=== PATIENT | male | born 2005 | race Caucasian/White ===

== ENCOUNTER 2023-01-26 19:49 | Emergency (ER) | payer OTHER, BC ==
[2023-01-26 19:56] VITALS: BP 145/93; PULSE 90; RESP 18; TEMP 99.1
--- NOTE | 2023-01-26 20:29 | XR ---
EXAMINATION TYPE: XR shoulder complete RT DATE OF EXAM: 01/26/2023 CLINICAL HISTORY: pain TECHNIQUE: Three views of the right shoulder are obtained. COMPARISON: None FINDINGS: There is no acute fracture/dislocation evident in the humerus or glenoid. There is complet e rupture of the AC ligament as well as the coracoclavicular ligament with the distal clavicle undern eath the skin surface. Findings are felt to reflect type V AC joint separation. IMPRESSION: 1. Fracture seen. AC joint separation as discussed above.
[2023-01-26] MEDS ORDERED: ACETAMINOPHEN TAB 325 MG TAB PO STA (20:44)
[2023-01-26] MEDS ORDERED: KETOROLAC 15 MG/ML 1 ML VIAL IM STA (20:44)
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
[2023-01-26] MEDS ORDERED: ACET/COD 300 MG/30 MG STARTER PACK 6 TAB BTL PO STA (21:28)
== END 2023-01-26 22:10 | disposition home or self-care (01) ==
LOC: EC 19:49
DX: S43.121A Dislocation of right acromioclavicular joint, 100%-200% displacement, initial encounter (principal); Z86.59 Personal history of other mental and behavioral disorders; V86.56XA Driver of dirt bike or motor/cross bike injured in nontraffic accident, initial encounter; Y92.411 Interstate highway as the place of occurrence of the external cause
CPT/HCPCS: 73030; 99284; 96372; J1885

== ENCOUNTER 2023-02-09 06:52 | Day surgery (SDC) | payer OTHER ==
[2023-02-06 16:36] VITALS: BMI 31.5
[2023-02-09] MEDS ORDERED: ONDANSETRON 4 MG/2 ML VIAL IVP ONE (07:11)
[2023-02-09] MEDS ORDERED: DEXAMETHASONE SOD PHOSPHATE 4 MG/ML 1 ML VIAL IV ONE (07:11)
[2023-02-09] MEDS ORDERED: LACTATED RINGERS 1,000 ML IV SCH (07:11)
[2023-02-09] MEDS ORDERED: LIDOCAINE 2% INJ 20 MG/ML (2 ML VIAL) ONE (09:34)
[2023-02-09] MEDS ORDERED: HYDROmorphone (PF) 1 MG/ML ONE (09:34)
[2023-02-09] MEDS ORDERED: diphenhydrAMINE 50 MG/ML 1 ML VIAL ONE (09:34)
[2023-02-09] MEDS ORDERED: fentaNYL (PF) 50 MCG/ML 2 ML AMP ONE (09:34)
[2023-02-09] MEDS ORDERED: SUCCINYLCHOLINE CHLORIDE 200 MG/10 ML VIAL IV ONE (09:34)
[2023-02-09] MEDS ORDERED: PROPOFOL 10 MG/ML 20 ML VIAL IV ONE (09:34)
[2023-02-09] MEDS ORDERED: PHENYLEPHRINE 10 MG/ML VIAL ONE (09:34)
[2023-02-09] MEDS ORDERED: MIDAZOLAM 2 MG/2 ML VIAL ONE (09:34)
[2023-02-09] MEDS ORDERED: LACTATED RINGERS 1,000 ML IV ONE (10:30)
[2023-02-09] MEDS: HYDROmorphone 0.5 MG/0.5 ML SYRINGE IVP PRN ×2 (11:29→11:53)
[2023-02-09 11:37] VITALS: TEMP 97.2
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
[2023-02-09] MEDS ORDERED: HYDROcodone/APAP 7.5-325MG 1 EACH TAB ONE (12:26)
[2023-02-09 13:03] VITALS: BP 145/88; PULSE 81; RESP 16
== END 2023-02-09 13:16 | disposition home or self-care (01) ==
LOC: OR 06:52
PROVIDERS: ATTEND Orthopaedic Surgery Sports Medicine
DX: S43.121A Dislocation of right acromioclavicular joint, 100%-200% displacement, initial encounter (principal); M25.311 Other instability, right shoulder; Z82.49 Family history of ischemic heart disease and other diseases of the circulatory system; X58.XXXA Exposure to other specified factors, initial encounter
CPT/HCPCS: 23585; C1713; J2250; J0330; J1200; J1100; J0690; J2405; J3010; J1170 ×2; J2704; J2001; J2371

== ENCOUNTER 2023-05-18 05:47 | Day surgery (SDC) | payer OTHER ==
[2023-05-18] MEDS ORDERED: ONDANSETRON 4 MG/2 ML VIAL IVP ONE (06:17)
[2023-05-18] MEDS ORDERED: DEXAMETHASONE SOD PHOSPHATE 4 MG/ML 1 ML VIAL IV ONE (06:17)
[2023-05-18] MEDS ORDERED: LIDOCAINE 1% (10MG/ML) FOR IV START INTRADERMA PRN (06:17)
[2023-05-18] MEDS ORDERED: LACTATED RINGERS 1,000 ML IV SCH (06:17)
[2023-05-18] MEDS ORDERED: HYDROmorphone 0.5 MG/0.5 ML SYRINGE IVP PRN (07:00)
[2023-05-18] MEDS ORDERED: MIDAZOLAM 2 MG/2 ML VIAL IV PRN (07:00)
[2023-05-18] MEDS ORDERED: ROCURONIUM 10 MG/ML (5 ML VIAL) IV ONE (07:08)
[2023-05-18] MEDS ORDERED: LIDOCAINE 1% INJ 10MG/ML (20 ML MDV) ONE (07:08)
[2023-05-18] MEDS ORDERED: KETOROLAC 15 MG/ML 1 ML VIAL ONE (07:08)
[2023-05-18] MEDS ORDERED: NEOSTIGMINE 1 MG/ML 10 ML VIAL ONE (07:08)
[2023-05-18] MEDS ORDERED: PROPOFOL 10 MG/ML 20 ML VIAL IV ONE (07:08)
[2023-05-18] MEDS ORDERED: MIDAZOLAM 2 MG/2 ML VIAL ONE (07:08)
[2023-05-18] MEDS ORDERED: fentaNYL (PF) 50 MCG/ML 2 ML AMP ONE (07:08)
[2023-05-18] MEDS ORDERED: SUCCINYLCHOLINE CHLORIDE 200 MG/10 ML VIAL IV ONE (07:08)
[2023-05-18] MEDS ORDERED: GLYCOPYRROLATE 0.2 MG/ML 2 ML VIAL ONE (07:08)
[2023-05-18] MEDS ORDERED: ceFAZolin 1,000 MG in SODIUM CHLORIDE 0.9% 1,000 ML IRRIGATION ONE (07:42)
[2023-05-18] MEDS ORDERED: HYDROmorphone 0.5 MG/0.5 ML SYRINGE IVP ONE (08:30)
[2023-05-18] MEDS ORDERED: MEPERIDINE 50 MG/ML SYRINGE IVP ONE (08:34)
[2023-05-18 08:38] VITALS: TEMP 97.1
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
[2023-05-18] MEDS ORDERED: LACTATED RINGERS 1,000 ML IV ONE (09:13)
[2023-05-18] MEDS ORDERED: HYDROcodone/APAP 5-325MG 1 EACH TAB ONE (09:14)
[2023-05-18 09:15] VITALS: RESP 16
[2023-05-18] MEDS ORDERED: HYDROcodone/APAP 5-325MG 1 EACH TAB PO ONE (09:15)
[2023-05-18 09:35] VITALS: BP 130/72; PULSE 64
== END 2023-05-18 09:45 | disposition home or self-care (01) ==
LOC: OR 05:47
PROVIDERS: ATTEND Orthopaedic Surgery Sports Medicine
DX: M25.311 Other instability, right shoulder (principal); T84.84XA Pain due to internal orthopedic prosthetic devices, implants and grafts, initial encounter; Z82.49 Family history of ischemic heart disease and other diseases of the circulatory system; Z87.891 Personal history of nicotine dependence; Z79.899 Other long term (current) drug therapy
CPT/HCPCS: 20680; J2250; J0330; J1100; J2710; J2175; J0690 ×2; J2405; J2001; J3010; J1885; J2704; J1170